=== PATIENT | female | born 2000 | race Caucasian/White ===

== ENCOUNTER 2020-09-17 15:29 | Emergency (ER) | payer OTHER ==
[2020-09-17 15:35] VITALS: BP 122/82; PULSE 101; RESP 18; TEMP 98.5
[2020-09-17] MEDS ORDERED: BACITRACIN OINT 1 EACH PACKET TOPICAL ONE (16:57)
[2020-09-17] MEDS ORDERED: LIDOCAINE 1% INJ 10MG/ML (20 ML MDV) SQ ONE (16:57)
--- NOTE | 2020-09-17 16:59 | ED ---
Wound/Laceration HPI - General Chief Complaint: Wound/Laceration Stated Complaint: Rt Hand Lac Time Seen by Provider: 09/17/20 16:55 Source: patient Mode of arrival: ambulatory Limitations: no limitations - History of Present Illness Initial Comments: Patient is a 20-year-old female presenting to the emergency Department with complaints of a laceration in between her right fourth and fifth digit. She states she was cleaning a wine glass when it broke and cut her in the webspace between the fourth and fifth digit. Bleeding is controlled. She is up-to-date with her tetanus vaccine. She is not on blood thinners. There are no further complaints. - Related Data Allergies Allergy/AdvReac Type Severity Reaction Status Date / Time No Known Allergies Allergy Verified 09/17/20 15:35 Review of Systems ROS Statement: Those systems with pertinent positive or pertinent negative responses have been documented in the HPI. ROS Other: All systems not noted in ROS Statement are negative. Past Medical History Past Medical History: No Reported History History of Any Multi-Drug Resistant Organisms: None Reported Past Surgical History: No Surgical Hx Reported Past Psychological History: No Psychological Hx Reported Smoking Status: Vaper Past Alcohol Use History: None Reported Past Drug Use History: None Reported General Exam - General Exam Comments Initial Comments: GENERAL: Patient is well-developed and well-nourished. Patient is nontoxic and in no acute distress. HEAD: Atraumatic, normocephalic. EYES: Pupils equal round and reactive to light, extraocular movements intact, sclera anicteric, conjunctiva are normal. Eyelids were unremarkable. ENT: Nares patent, oropharynx clear without exudates. Moist mucous membranes. NECK: Normal range of motion, supple without lymphadenopathy or JVD. LUNGS: Unlabored respirations. Breath sounds clear to auscultation bilaterally and equal. No wheezes rales or rhonchi. HEART: Regular rate and rhythm without murmurs, rubs or gallops. ABDOMEN: Soft, nontender, normoactive bowel sounds. No guarding, no rebound. No masses appreciated. : Deferred MUSCULOSKELETAL: Patient has full range of motion of her right hand digits. Normal extremities with adequate strength and normal range of motion, no pitting or edema. No clubbing or cyanosis. SKIN: Warm, Dry, normal turgor, no rashes. There is a 1 cm laceration in the webspace between the fourth and fifth digit on the right hand. Bleeding is controlled. Limitations: no limitations Course Vital Signs 09/17/20 15:29 Temperature 98.5 F Pulse Rate 101 H Respiratory 18 Rate Blood Pressure 122/82 O2 Sat by Pulse 100 Oximetry Procedures - Laceration Laceration #1 Consent Obtained: verbal consent Indication: laceration Site: hand (In between the webspace of the fourth and fifth digit on the right hand) Size (cm): 1 Description: linear Depth: simple, single layer Anesthetic Used: lidocaine 1% Anesthesia Technique: local infiltration Amount (mls): 4 Pre-repair: irrigated extensively Type of Sutures: nylon Size of Sutures: 5-0 Number of Sutures: 4 Technique: simple, interrupted Patient Tolerated Procedure: well Medical Decision Making - Medical Decision Making Patient is a 20-year-old female here with a 1 cm laceration in the webspace between her fourth and fifth digits from a wine glass. Her tetanus is up-to-date. Patient's wound was cleaned, closed with 4,5-0 sutures. She tolerated procedure well. She is stable for discharge. She'll have sutures removed in 7-10 days. Disposition Clinical Impression: Laceration of right hand Disposition: HOME SELF-CARE Condition: Stable Instructions (If sedation given, give patient instructions): Care For Your Stitches (ED) Additional Instructions: Please return to the Emergency Department if symptoms worsen or any other concerns. Keep area clean and dry. Stitches need to be removed in 7-10 days as discussed. Is patient prescribed a controlled substance at d/c from ED?: No Referrals: Mamie Robertson MD [Primary Care Provider] - 1-2 days Time of Disposition: 17:53
== END 2020-09-17 18:06 | disposition home or self-care (01) ==
LOC: EC 15:29
DX: S61.411A Laceration without foreign body of right hand, initial encounter (principal); F17.290 Nicotine dependence, other tobacco product, uncomplicated; W25.XXXA Contact with sharp glass, initial encounter; Y93.89 Activity, other specified
CPT/HCPCS: 12001 ×2; 99282 ×2; J2001